=== PATIENT | female | born 1980 | race Asian ===

== ENCOUNTER 2017-02-03 22:54 | Emergency (ER) | payer MEDICAID ==
[2017-02-04 01:01] VITALS: BP 158/98
[2017-02-04 01:35] LABS: Basophils % (Auto) 1.2 % (0.0-1.8); Eosinophils % (Auto) 3.5 % (0.0-4.3); Hematocrit 37.6 % (30.3-42.9); Hemoglobin 12.7 gm/dl (10.1-14.3); Mean Corpuscular HGB Conc 34 % (30-34); Mean Corpuscular Hemoglobin 30 pg (28-32); Mean Corpuscular Volume 90 fl (79-97); Platelet Count 302 K/mm3 (140-440); Red Blood Count 4.18 M/mm3 (3.65-5.03)
[2017-02-04 02:42] LABS: Anion Gap 21 mmol/L; Blood Urea Nitrogen 12 mg/dL (7-17); Calcium 8.7 mg/dL (8.4-10.2); Carbon Dioxide 21 mmol/L (22-30); Chloride 102.1 mmol/L (98-107); Glucose 102 mg/dL (65-100); Potassium 3.9 mmol/L (3.6-5.0); Sodium 140 mmol/L (137-145)
--- NOTE | 2017-02-04 08:14 | Emergency Department Report ---
ED Female HPI - General Chief complaint: Urogenital-Female Stated complaint: LEFT NIPPLE SWOLLEN/PAIN Time Seen by Provider: 02/04/17 07:20 Source: patient Mode of arrival: Ambulatory Limitations: No Limitations - History of Present Illness Initial comments: 36-year-old -[place] female comes in for complaint of left breast is swollen and painful. Patient reports that this been going on for for about a month. Patient reports she has a past medical history of mammary ducts blockage. Patient denies any fever or chills no nausea no vomiting. She does report she has saw someone on Friday and they placed her on Diciclofenac pills which she reports does not help with her pain. She reports she is scheduled to see a radiologist for her mammogram and ultrasound of her left breast on . - Related Data Previous Rx's Medication Instructions Recorded Last Taken Type Erythromycin [Erythromycin Ophth 10 applic OP 4XD #4 tube 08/23/16 Unknown Rx Oint] Cephalexin [Keflex] 500 mg PO QID #56 capsule 02/04/17 Unknown Rx Fluconazole [Diflucan TAB] 150 mg PO ONCE #2 tablet 02/04/17 Unknown Rx Allergies Allergy/AdvReac Type Severity Reaction Status Date / Time morphine Allergy Angioedema Verified 08/23/16 09:50 ED Review of Systems ROS: Stated complaint: LEFT NIPPLE SWOLLEN/PAIN Other details as noted in HPI Constitutional: no symptoms reported Eyes: denies: eye pain, eye discharge, vision change ENT: denies: ear pain, throat pain Respiratory: no symptoms reported Cardiovascular: denies: chest pain, palpitations Musculoskeletal: denies: back pain, joint swelling, arthralgia Skin: other (left breast pain ) Neurological: denies: headache, weakness, paresthesias Psychiatric: denies: anxiety, depression ED Past Medical Hx - Past Medical History Previous Medical History?: Yes Additional medical history: Depression - Surgical History Past Surgical History?: Yes Additional Surgical History: , Milk ducts removed. - Social History Smoking Status: Never Smoker Substance Use Type: None - Medications Home Medications: Home Medications Medication Instructions Recorded Confirmed Last Taken Type Erythromycin [Erythromycin Ophth 10 applic OP 4XD #4 tube 08/23/16 Unknown Rx Oint] Cephalexin [Keflex] 500 mg PO QID #56 capsule 02/04/17 Unknown Rx Fluconazole [Diflucan TAB] 150 mg PO ONCE #2 tablet 02/04/17 Unknown Rx ED Physical Exam - General Limitations: No Limitations General appearance: alert, in no apparent distress - Head Head exam: Present: atraumatic, normocephalic - Eye Eye exam: Present: normal appearance - ENT ENT exam: Present: mucous membranes moist - Respiratory Respiratory exam: Present: normal lung sounds bilaterally. Absent: respiratory distress - Cardiovascular Cardiovascular Exam: Present: regular rate, normal rhythm. Absent: systolic murmur, diastolic murmur, rubs, gallop - GI/Abdominal GI/Abdominal exam: Present: soft, normal bowel sounds - Expanded Exam Expanded Female exam: Present: other (left breast swollen tender warm and erythematous ) - Neurological Exam Neurological exam: Present: alert, oriented X3 ED Course Vital Signs 02/04/17 02/04/17 00:06 01:00 Temperature 98.3 F 98.4 F Pulse Rate 94 H 80 Respiratory 18 Rate Blood Pressure 167/102 158/98 O2 Sat by Pulse 100 100 Oximetry ED Medical Decision Making - Lab Data Result diagrams: 02/04/17 00:18 02/04/17 00:18 - Medical Decision Making Patient evaluated by this provider in fast track. Discussed patient will place on Keflex for antibiotic for her mastitis as well as give her a Toradol injection here. Patient verbalized understanding. Encourage her to keep her appointment for for a mammogram and ultrasound of the left breast. As well as follow-up with her breast specialist. Critical care attestation.: If time is entered above; I have spent that time in minutes in the direct care of this critically ill patient, excluding procedure time. ED Disposition Clinical Impression: Mastitis, left, acute Disposition: DISCHARGED TO HOME OR SELFCARE Is pt being admited?: No Does the pt Need Aspirin: No Condition: Stable Instructions: Mastitis (ED) Additional Instructions: Please take antibiotics as prescribed. Please keep your appointment for for your mammogram and ultrasound. Please follow-up which are primary care provider a breast specialist. Prescriptions: Cephalexin [Keflex] 500 mg PO QID #56 capsule Fluconazole [Diflucan TAB] 150 mg PO ONCE #2 tablet Referrals: PRIMARY CARE, [Primary Care Provider] - 3-5 Days Forms: Accompanied Note, Work/School Release Form(ED)
[2017-02-04] MEDS: TORADOL IM ONE (08:18)
== END 2017-02-04 09:44 | disposition home or self-care (01) ==
LOC: ED 22:54
DX: N61.0 Mastitis without abscess (principal); F32.9 Major depressive disorder, single episode, unspecified; Z88.5 Allergy status to narcotic agent
CPT/HCPCS: 36415; 80048; 84484; 85025; 93005; 93010; 96372; 99283; J1885

== ENCOUNTER 2019-03-05 22:30 | Emergency (ER) | payer MEDICAID, OTHER ==
--- NOTE | 2019-03-05 22:33 | Event Note ---
ED Screening Note ED Screening Note: htn with headache n/v off bp meds no focal def This initial assessment/diagnostic orders/clinical plan/treatment(s) is/are subject to change based on patients health status, clinical progression and re- assessment by fellow clinical providers in the ED. Further treatment and workup at subsequent clinical providers discretion. Patient/guardian urged not to elope from the ED as their condition may be serious if not clinically assessed and managed. Initial orders include: ekg labs ct
[2019-03-05 23:22] LABS: Basophils # (Auto) 0.2 K/mm3 (0.0-0.1); Basophils % (Auto) 0.9 % (0.0-1.8); Eosinophils # (Auto) 0.5 K/mm3 (0.0-0.4); Eosinophils % (Auto) 2.9 % (0.0-4.3); Hematocrit 38.4 % (30.3-42.9); Lymphocytes # (Auto) 2.9 K/mm3 (1.2-5.4); Lymphocytes % (Auto) 15.6 % (13.4-35.0); Mean Corpuscular HGB Conc 34 % (30-34); Mean Corpuscular Volume 89 fl (79-97); Monocytes # (Auto) 0.8 K/mm3 (0.0-0.8); Monocytes % (Auto) 4.1 % (0.0-7.3); Platelet Count 338 K/mm3 (140-440); Red Blood Count 4.32 M/mm3 (3.65-5.03); Red Cell Distribution Width 13.7 % (13.2-15.2)
--- NOTE | 2019-03-05 23:26 | Cat Scan Report ---
PROCEDURE: CT HEAD/BRAIN WO CON TECHNIQUE: Computerized tomography of the head was performed without contrast material. CT DOSE LENGTH PRODUCT: 920.5 mGycm HISTORY: headache with htn COMPARISONS: None . FINDINGS: Brain: Brain density appears normal. No evidence of intracranial hemorrhage. No parenchymal hemorr holger, mass lesions or mass effect are seen. No abnormal extra-axial fluid collects or masses are see n. Ventricles: Ventricles are normal size and are midline. Bone Windows: No evidence of skull fracture. Paranasal sinuses: Mild mucosal thickening seen in right and left maxillary sinuses. Visualized paran roni sinuses otherwise are clear. Mastoid air cells: Clear. IMPRESSION: Negative unenhanced CT scan of the brain. Mild paranasal sinus disease as described. This document is electronically signed by Donal Bruce MD., March 06 2019 12:24:49 AM ET
[2019-03-05 23:45] LABS: Alanine Aminotransferase 15 units/L (7-56); Albumin 4.3 g/dL (3.9-5); BUN/Creatinine Ratio 12; Blood Urea Nitrogen 12 mg/dL (7-17); Calcium 9.7 mg/dL (8.4-10.2); Hemolysis Index 11
[2019-03-06 00:15] VITALS: BP 183/89
== END 2019-03-06 01:00 | disposition left against medical advice (07) ==
LOC: ED 22:30
DX: R51 Headache (principal); Z53.21 Procedure and treatment not carried out due to patient leaving prior to being seen by health care provider
CPT/HCPCS: 36415; 70450; 80053; 84484; 85025; 93005; 93010